=== PATIENT | female | born 1960 | race African-American/Black ===

== ENCOUNTER 2025-01-04 18:05 | Emergency (ER) | payer MEDICARE, MEDICAID, SELFPAY ==
[2025-01-04 18:12] VITALS: BP 101/64; PULSE 82; RESP 20; TEMP 37; O2SAT 97; BMI 21.3
--- NOTE | 2025-01-04 18:26 | ED_ITS ---
HPI - General Adult General Chief complaint: Wound/Laceration Stated complaint: Cut on L index finger Time Seen by Provider: 01/04/25 18:26 Source: patient and EMS Mode of arrival: EMS Limitations: no limitations History of Present Illness ED Provider: Laine Ramírez PA-C HPI narrative: Patient is a 64 year old assigned female at with no reported medical history presenting to the emergency department today with a left index finger laceration. Patient states that she was opening a brand new disposable razor when she accidentally cut her finger. Patient denies any dizziness, light headedness, abdominal pain, nausea, vomiting, fever, chills, blurry vision, double vision, loss of vision, chest pain, difficulty breathing, shortness of breath, back pain, night sweats, pain with urination, increased urinary frequency, increased urinary urgency, blood in her urine or stool, syncope or a near syncopal episode, recent trauma or falls, bowel incontinence, bladder incontinence, or any other complaints at this time. Patient states that she is up to date on her tetanus status. Relieving factors: none Exacerbating factors: none Associated symptoms: denies other symptoms Treatments prior to arrival: none Related Data Allergies Allergy/AdvReac Type Severity Reaction Status Date / Time acetaminophen (From VICODIN) Allergy Unknown NAUSEA & Verified 01/04/25 18:14 VOMITING codeine (CODEINE) Allergy Unknown UNKNOWN Verified 01/04/25 18:14 hydrocodone (From VICODIN) Allergy Unknown NAUSEA & Verified 01/04/25 18:14 VOMITING Sulfa (Sulfonamide Allergy Unknown UNKNOWN Verified 01/04/25 18:14 Antibiotics) (SULFA (SULFONAMIDE ANTIBIOTICS)) tramadol (TRAMADOL) Allergy Unknown UNKNOWN Verified 01/04/25 18:14 Review of Systems Constitutional: Constitutional: Reports no additional constitutional complaints, Denies chills, Denies fever(s) and Denies night sweats Eyes: Eyes: Reports no additional eye complaints, Denies blurry vision, Denies change in vision, Denies diplopia, Denies eye discharge, Denies loss of vision and Denies eye pain ENT: Denies dizziness Cardiovascular: Cardiovascular: Reports no additional cardiovascular complaints, Denies chest pain, Denies lightheadedness, Denies Loss of Consciousness and Denies dyspnea Respiratory: Respiratory: Reports no additional respiratory complaints and Denies dyspnea Gastrointestinal: Gastrointestinal: Reports no additional gastrointestinal complaints, Denies abdominal pain, Denies melena, Denies hematochezia, Denies change in bowel habits and Denies change in stool character Genitourinary: Genitourinary: Denies hematuria, Denies urinary frequency, Denies dysuria, Denies urinary incontinence, Denies urinary hesitancy and Denies urinary urgency Musculoskeletal: Musculoskeletal: Reports no additional musculoskeletal complaints, Denies numbness and Denies tingling Integumentary/Breasts: Comments: left index finger laceration Neurologic: Denies dizziness, Denies loss of vision, Denies numbness and Denies tingling Psychiatric: Psychiatric: Reports no additional psychiatric complaints Endocrine: Endocrine: Reports no additional endocrine complaints Hematologic/Lymphatic: Hematologic/Lymphatic: Reports no additional hematologic/lymphatic complaints Allergic/Immunologic: Allergic/Immunologic: Reports no additional allergic/immunologic complaints PMFSH Past Medical History Attestation statement: The following information was validated with the patient. Source: old records reviewed and nursing notes reviewed Social History Social History Advance Directives: No Advance Directives Information Provided: No Physical Exam ED Vital Signs: Vital Signs - 24 hr 01/04/25 18:12 01/04/25 19:07 Temperature 98.6 F 98.6 F Pulse Rate 82 82 Respiratory Rate 20 20 Blood Pressure 101/64 101/64 Pulse Oximetry 97 97 Oxygen Delivery Method Room Air Room Air BMI result Body Mass Index 21.3 Const General: cooperative, no acute distress, alert and awake Nutritional Appearance: well nourished Orientation/consciousness: patient oriented x3 HENSC Head: Yes normal to inspection and Yes atraumatic Ears: hearing grossly normal bilaterally and external ears normal General nose exam: Normal external nose present, no nasal discharge noted and no epistaxis Face and sinus: Yes normal facial exam, No abrasion and No laceration Mouth: Normal oral and palatal mucosa present, no drooling and no muffled voice Eyes General: appearance normal, both eyes and all related structures Periorbital: periorbital findings normal Eyelids: Yes eyelids normal Conjunctivae: conjunctivae normal Pupils: Equal, round and reactive pupils present EOM: EOMs intact bilaterally Neck Neck: Yes normal visual inspection, Yes full ROM and Yes no lymphadenopathy Resp Effort & Inspection: normal respiratory effort and able to speak in complete sentences Neuro General: patient oriented x3, moves all extremities and CN's II-XI intact bilaterally Cranial nerves: Yes Equal, round and reactive pupils present Cognition (Neuro): normal cognition Extrem Other: superficial laceration to the palmar aspect of the distal left index finger General: Yes full ROM and Yes capillary refill normal Psych Appearance: grossly normal Mental Status: mental status grossly normal Affect: normal affect Attitude: cooperative Thought process: Normal thought process present Thought content: Normal thought content present Insight: Good insight present (Psych) Medications Administered Discontinued Medications Generic Name Dose Route Start Last Admin Trade Name Phillip PRN Reason Stop Dose Admin Ketorolac Tromethamine 15 mg 01/04/25 18:56 01/04/25 19:01 Ketorolac Tromethamine 15 Mg/Ml Vial IM 01/04/25 18:57 15 mg ONCE ONE Administration Procedures Laceration Laceration 1: Site: other (finger) Side (If applicable): left Size (cm): 1 Description: linear Pre-repair: wound explored, irrigated extensively and deep structures intact Skin layer closed with: other (dermabond) Size (cm): other (dermabond) Technique: other (dermabond) Medical Decision Making Medical Decision Making MDM Narrative: Patient is a 64 year old assigned female at with no reported medical history presenting to the emergency department today with a left index finger laceration. Patient's physical exam showed a very superficial laceration to the left index finger with no active bleeding or gaping areas. I explained my physical exam findings to the patient. I answered all questions asked by the patient. Patient's laceration was repaired with dermabond, without incident. Patient's PMS was intact prior to and after dermabond repair. I stressed the importance of the patient taking her medication as directed (either prescribed or as the over the counter packaging recommends). I stressed the importance of the patient following up with her primary care provider. I stressed the importance of the patient returning to the emergency department immediately if her symptoms were to worsen or if she were to develop any dizziness, shortness of breath, difficulty breathing, chest pain, blurry vision, loss of vision, nausea, vomiting, abdominal pain, fever, chills, back pain, or any other complaints. Patient verbalized agreement and understanding with this treatment plan and discharge. Differential Diagnosis Differential Diagnoses: The differential diagnosis associated with the presentation includes Laceration Abrasion Admission/Observation Consideration of admission/observation: Escalation of care including admission/observation considered Patient would have been admitted to the hospital had her clinical presentation warranted hospital admission. Independent Historian Clinical information obtained from an independent historian. History obtained from or confirmed by: EMS (EMS provided additional history and confirmed the history provided by the patient. ) Discharge Plan Discharge Clinical Impression: Laceration Patient Disposition: Home, Self-Care Instructions: Skin Adhesive Care (ED) Additional Instructions: Do NOT get the affected area wet for at least 7 days. The glue will dissolve and fall off on it's own. The wound may ooze around the glue - this is NORMAL. Apply pressure to the wound if that happens. Perform daily wound checks and dressing changes. Follow up with your primary care provider. Return to the emergency department immediately if you develop any numbness, tingling, dizziness, shortness of breath, difficulty breathing, chest pain, blurry vision, loss of vision, nausea, vomiting, abdominal pain, fever, chills, back pain, or any other complaints. Please see the information below about our Patient Portal. If you are not yet enrolled in the [facility] Patient Portal, you will receive an enrollment email invitation following your visit to any [facility] setting. You may also self-enroll in the Patient Portal by visiting our website: [email or web address] The following information is required to access the Patient Portal: - Your [facility] [place] - Your personal home email address (must match what is in your electronic medical record, Registration staff can assist with this) - Name - Date of Capabilities of the Patient Portal: - Message some providers - View upcoming appointments - Access your health summary, medical history, and visit history - View current conditions and allergies - View procedure and lab results - View your medications, including guidelines, side effects, and precautions - Complete pre-appointment questionnaires requested by your provider - Ready summary reports of your office visits and procedures To access the Patient Portal Mobile [employer], follow these directions: - Search Smart [employer] in the [employer] Store or Google Play Store - Download the Johnson - Search for [facility] - Enter your login/password Referrals: Annita Melgoza MD [Primary Care Provider, Internal Medicine] Interventions: ED Discharge Assessment Last Done: 01/04/25 19:07 Discharge Date/Time: 01/04/25 19:07 Print Language: Bahraini
--- OUTSIDE RECORDS SUMMARY | 2025-01-04 18:33 | XMS_ITS | Data Portability ---
[facility] Address [address] [facility] [address] [place] [address] Care Team Providers Care Staff Services Manager Name Role Phone [facility] Primary Care Provider [facility] OTHER Assessment No assessment recorded. Plan of Treatment Reminders Order Date Submit Date Provider Last Modified By Organization Details Last Modified Time Details Appointments None record ed. Lab None record ed. Referral None record ed. Procedures None record ed. Surgeries None record ed. Imaging None record ed. Medication Orders None record ed. Patient TargetsNo targets recorded. Patient InstructionsNo instructions recorded. Reason for Referral None Reported. Problems Name Problem SNOMED Code Status Onset Date Resolution Date Notes Provider Name and Address Organization Details Recorded Time Pain of sacroiliac joint 378841801 Active 2021 Not Available [facility] 2 01:04:07 Chronic neck pain 9616675341534 Active 2021 Not Available [facility] 2 01:04:07 Chronic back pain 888355922 Active 2021 Not Available [facility] 2 01:04:08 Chronic hepatitis C 553796360 Active 2021 Not Available [facility] 2 01:04:07 Opioid dependence 67982632 Active 2021 Not Available [facility] 2 01:04:07 Migraine 88695161 Active 2021 Not Available [facility] 2 01:04:07 Overactive urinary bladder 123807156 Active 2021 Not Available [facility] 2 01:04:07 Mixed anxiety and depressive disorder 294753007 Active 06/02/ 2022 Not Available [facility] 2 01:04:07 Essential hypertensi on 43989758 Active 2021 Not Available [facility] 2 01:04:07 Nocturnal enuresis 9431698 Active 2021 Raquel Laboy MD [address], [address], [place], [address] , [facility] 2 23:00:39 Notes:Some problems listed i n Document: #[id number] could not be added to this patient's chart. Please review this document and add these problems to the patient's chart manually as needed. Problem Notes None recorded. Medical Equipment None Reported. Allergies Allergen ID Allergen Name Allergen Category Reaction Reaction Severity Criticality Documentation Date Start Date Code Code System Note Provider Name and Address Organization Details Recorded Time 14427 codeine medicatio n vomiting Not available Not available 12/09/2021 2670 RxNorm CAN TAKE OXYCO DONE AND BUPRE NORSUSAN INE MELODIE REILLY PA-C [address], [address], [place], [address], [facility] 2 13:33:16 41075 hydrocodo ne Not available vomiting Not available Not available 12/09/2021 5489 RxNorm CAN TAKE OXYCO DONE AND BUPRE REDD REILLY PA-C [address], [address], [place], [address], [facility] 2 13:33:35 47606 Bactrim medicatio n vomiting Not available Not available 12/09/2021 36073 9 RxNorm MELODIE REILLY PA-C [address], [address], [place], [address], [facility] 2 13:34:35 61872 Product containin g penicilli n (product) medicatio n diarrhea Not available Not available 12/09/2021 70442 8001 SNOMED MELODIE REILLY PA-C [address], [address], [place], [address], [facility] 2 13:34:43 Medications Not known to be on any medication Vitals Date Recorded Body height Systolic blood pressure Diastolic blood pressure Provider Name and Address Organization Details Last Updated DateTime 05/09/2022 170.18 cm 160 mm[Hg] 82 mm[Hg] MELODIE REILLY PA-C [address], [place], [address], [facility] 05/22/2022 10:38:45 Date Recorded Body height Body mass index (BMI) Body weight Heart rate Respiratory rate Body temperature Oxygen saturation Oxygen saturation in Arterial blood by Pulse oximetry Systolic blood pressure Diastolic blood pressure Provider Name and Address Organization Details Last Updated DateTime 2 170.18 cm 33.3 kg/m2 51327.7 4 g 80 /min 18 /min 97.8 [degF] 93 % 93 % 136 mm[Hg] 76 mm[Hg] Raquel Laboy MD [address] , [address], [place], [address], [facility] 2 20:16:38 Date Recorded Body height Systolic blood pressure Diastolic blood pressure Provider Name and Address Organization Details Last Updated DateTime 05/24/2022 170.18 cm 136 mm[Hg] 76 mm[Hg] MELODIE REILLY PA-C [address], [address], [place], [address], [facility] 06/04/2022 17:41:44 Date Recorded Body height Systolic blood pressure Diastolic blood pressure Provider Name and Address Organization Details Last Updated DateTime 06/05/2022 170.18 cm 130 mm[Hg] 74 mm[Hg] Joe Holley MD [address] , [address], [place], [address], [facility] 06/05/2022 09:19:33 Date Recorded Body height Oxygen saturation Oxygen saturation in Arterial blood by Pulse oximetry Heart rate Respiratory rate Body temperature Systolic blood pressure Diastolic blood pressure Provider Name and Address Organization Details Last Updated DateTime 2 170.18 cm 93 % 93 % 80 /min 18 /min 97.6 [degF] 130 mm[Hg] 74 mm[Hg] CHALO Cordova [address], [address], [place], [address], [facility] 2 09:10:32 Social History Question Answer Notes LastModified by Organizat ion Details LastModified Time Tobacco Smoking Status Never Smoker MELODIE REILLY PA-C [address], [address], [place], [address], [facility] 12/13/2021 09:24:00 Do You Have An Advance Directive? Yes Full Code; All Interventions [email or web address] Information not available 12/09/2021 What Is Your Code Status? Full Code [email or web address] Information not available 12/13/2021 Which Illicit Or Recreational Drugs Have You Used? Heroin [email or web address] Information not available 12/13/2021 Legal Guardian? No [email or web address] Informati on not available 12/13/2021 Do You Have A Medical Power Of Bulb Weeder? No [email or web address] Information not available 12/13/2021 What Was The Date Of Your Most Recent Tobacco Screening? [email or web address] Information not available 12/13/2021 Do You Have An Out Of Hospital DNR? No [email or web address] Information not available 12/13/2021 Has Tobacco Cessation Counseling Been Provided? No N/A [email or web address] Information not available 12/13/2021 Have You Used IV Drugs? Yes [email or web address] Information not available 12/13/2021 Sex: Unknown Functional Status Question Answer Note LastModified by Organizat ion Details LastModified Time Do you use any illicit or recreational drugs? Yes Hx heroin - last 30 years ago [email or web address] Information not available 12/09/2021 Mental Status None recorded. Family History Relationship Description Onset Age of this Age Resolved Age Notes LastModified by Organization Details LastModified Time Mother Hypertensive disorder [email or web address] Not available 2021 14:32:46 Mother Cerebrovascu lar accident [email or web address] Not available 14:32:58 Father Liver cell carcinoma [email or web address] Not available 2021 14:33:15 Medical History No medical history recorded. Gynecological HistoryNo gynecological history recorded. Obstetrics History GPAL:G 0 P 0 0 0 0 Immunizations Vaccine Type Date Status Note Provider Nam e and Address Organization Details Recorded Time COVID-19, mRNA, LNP-S, PF, 30 mcg/0.3 mL dose 1 completed Not Available [facility] 03/03/2022 01:04:08 COVID-19, mRNA, LNP-S, PF, 30 mcg/0.3 mL dose 1 completed Not Available [facility] 03/03/2022 01:04:08 COVID-19, mRNA, LNP-S, PF, 30 mcg/0.3 mL dose 1 completed Not Available [facility] 03/03/2022 01:04:08 Influenza, split virus, quadrivalent, preservative 1 completed Not Available [facility] 03/03/2022 01:04:08 COVID-19, mRNA, LNP-S, PF, 30 mcg/0.3 mL dose 2 completed Not Available [facility] 03/03/2022 01:04:08 Influenza, split virus, quadrivalent, preservative 2 completed MELODIE REILLY PA-C [address], [facility] [address], [place], [address], [facility] 05/13/2022 16:08:19 COVID-19, mRNA, LNP-S, bivalent, PF, 30 mcg/0.3 mL dose 2 completed MELODIE REILLY PA-C [address], [address], [place], [address], [facility] 05/22/2022 10:40:52 Past Encounters Encounter ID Performer Location Encounter Start Date Encounter Closed Date Diagnosis/Indication Diagnosis SNOMED-CT Code Diagnosis ICD10 Code Diagnosis Note [id number] MELODIE REILLY PA-C [facility] on [address] [place] [address] 12/09/2021 13:30:48 12/14/2021 09:55:22 Chronic back pain 631945071 M54.31 PT/OTMulti modal pharmacoth erapyExten sive pt education about the history of buprenorph ine and how it does contribute to pain management -agreed to take the Suboxone as prescribed over the weekend and see if her pain is any better.No changes to oxycodone unless decreasing No extra oxycodone dosesMonit or and f/u prn Chronic hepatitis C 1283 88860 B18.2 Previously declined txOutpatie nt f/u with PCP after d/c Chronic neck pain 573566 4450 107 M54.2 see back pain above Migraine 22423065 G43.90 9 Ok to continue prn triptan despite increased risk of serotonin syndrome with Effexor - will monitor Opioid dependence 163682 00 F11.20 on agonist therapy with Suboxone. Discussed the possibilit y of Sublocade since she mostly forgets to take the Suboxone.- unable to prescribe here since [facility] is not registered with [facility]-she will explore this with her Suboxone prescriber at [facility] Overactive urinary bladder 924056693 N32.81 Oxybutynin Pain of sa croiliac joint 170580712 M53.3 see back pain above Advance care planning 71 6179822 Z71.89 Met with pt, who is her own decision-jolanta hernández, in her room. Reviewed each section of the MOLST that she had completed with the nurse Answered questions to her satisfacti on. She did not wish to revise her selections . Form signed and orders entered to reflect the following: Full code; all interventi ons. Total time spent 20 minutes [id number] Raquel Laboy MD [facility] on [address] [place] [address] 12/13/2021 17:23:48 12/16/2021 14:51:59 Chronic back pain 920736641 M54.31 No changes in meds tonight, I told pt I would leave a note for Melodie for the morning. She is upset because she was under the impression it was up to me.For now continue suboxone 8/2 TID, gabapentin 800 mg TID, tizanidine 4 mg qhs prn, ibuprofen 800 mg q 6 hrs prn, oxy 5 mg q 6 hrs prn, lidocaine patch daily, APAP 650 mg q 6 hrs prn and prednisone taper.Cons ider scheduling ibuprofen 600 mg q 6 hrs. when off prednisone .Continue PT/MATILDE/U with neurosurg about stimulator as planned. Chronic hepatitis C 1283 92157 B18.2 Previously declined txOutpatie nt f/u with PCP after d/c Chronic neck pain 920512 3827 107 M54.2 see back pain above Migraine 08455684 G43.00 9 Continue Imitrex prnMonitor Opioid dependence 171605 00 F11.20 Pt denies forgetting to take suboxone. Says she stopped it due to ineffectiv e for pain.Has been clean from heroin for 30 yrs.F/U as outpt. Overactive urinary bladder 397924965 N32.81 Continue oxybutynin 5 mg qd.Monitor urinary function. Essential hypertension 76364571 I10 Good control amlodipine 5 mg qdMonitor BP and labs. Mixed anxi ety and depressive disorder 028005142 F41.8 Continue Trazodone 200 mg qhs and Effexor ER 225 mg qamMonitor mood.Consu lt psych prn [id number] MELODIE REILLY PA-C [facility] on [address] [place] [phone] 12/14/2021 13:47:41 12/20/2021 09:58:19 Chronic low back pain 774454892 M54.50 with acute flare add oxycodone IR 5 mg po 30 min before rehab-ok to given anytime relative to other doses-scri pt for oxycodone IR 5 mg #30 no refills given to nurse Increase gabapentin from 800 mg po tid to max dose of 1200 mg po tid-monito r for edema Chronic constipation 236 191069 K59.09 Senna 2 po bid x 2 days then 2 po qhsHas clio bowel protocol availableM onitor and f/u prn [id number] MELODIE REILLY PA-C [facility] [address] [place] [address] 12/20/2021 16:30:01 12/27/2021 20:44:07 Low back pain 249698787 M54.59 No indication to adjust meds Chronic constipation 236 880690 K59.09 [facility] bowel protocol availableM onitor and f/u prn [id number] MELODIE REILLY PA-C [facility] [address] [place] [phone] 12/21/2021 21:23:02 12/28/2021 14:03:38 Chronic back pain 666079523 M54.31 PT/OTMulti modal pharmacoth erapyNurse has corrected order to restart Prednisone taperMonit or and f/u prn [id number] MELODIE REILLY PA-C [facility] on [address] [place] [phone] 01/03/2022 12:48:53 01/05/2022 15:02:27 Urinary incontinence 120786129 R32 Abruptly significan tly worseU/A with reflex to culture r/o UTI-if negative, would increase Oxybutynin from 5 to 10 mg po daily [id number] MELODIE REILLY PA-C [facility] on [address] [place] [phone] 01/04/2022 15:19:24 01/11/2022 15:25:51 Urinary incontinence R32 U/A neg so farIncreas e oxybutynin ER from 5 mg to 10 mg po daily [id number] MELODIE REILLY PA-C [facility] on [address] [place] [phone] 01/17/2022 16:56:50 01/24/2022 10:08:44 Overactive urinary bladder 273366851 N32.81 Discussed with pt she is still only at 50% of max dose of oxybutynin -can either further increase or trial alternativ e med-she would like to try something differentd /c oxybutynin start Enablex 7.5 mg po dailyMonit or and f/u prn [id number] MELODIE REILLY PA-C [facility] on [address] [place] [phone] 01/18/2022 11:21:59 01/24/2022 10:53:49 Weight gain 5611630 R63.5 Not significan tNot on any nutritiona l supplement sMonitor weightsRD also following Chronic back pain 948056 002 M54.31 PT/OTMulti modal pharmacoth erapyConsi genoveva f/u with Dr. Pichardo at [facility] er repeat imagingMon itor and f/u prn Overactive urinary bladder 373696048 N32.81 Just switched from oxybutynin to EnablexMon itor and f/u prnMay need to increase EnablexInc ontinence not as concerning as retention would be with regard to underlying process with spine Essential hypertension 52013668 I10 BPs stable. Monitor and adjust meds prn [id number] MELODIE REILLY PA-C [facility] on [address] [place] [phone] 01/20/2022 16:33:52 02/02/2022 09:06:59 Chronic back pain 218892359 M54.31 Restart Prednisone -- much slower taper-50 mg po daily x 14 days then decrease by 5 mg q 14 days-pt pleased with this planSee if can get f/u with Dr. Pichardo at [facility]/OT[facility] o other med changes needed at this timeMonito r and f/u prn [id number] MELODIE REILLY PA-C [facility] on [address] [place] [phone] 01/23/2022 16:22:37 02/02/2022 09:40:11 Chronic back pain 559936969 M54.31 seems to be responding well to Prednisone -refer to [facility] for possible steroid injectionC ontinue PT/OTFollo w clinically Urinary incontinence 165 972537 R32 Recent U/A negIncreas e Enablex from 7.5 to 15 mg po dailyFollo w clinically [id number] MELODIE REILLY PA-C [facility] on [address] [place] [id number] 01/26/2022 16:42:48 02/07/2022 11:04:45 Polyuria 53157389 R35.81 Prior neg UTINot particular ly diluteNorm al glucose and normal Na on labsConsid er trial off Zanaflex, which she takes at hsRemains on Prednisone and Enablex Excessive thirst 2171542 7 R63.1 Normal glucose on labsIs on Prednisone and EnablexNo [id number] Raquel Laboy MD [facility] on [address] [place] [phone] 02/13/2022 17:20:55 02/24/2022 15:42:30 Polyuria 32693316 R35.81 Continue Enablex 15 mg qd.Monitor urinary function. Excessive thirst 9395829 7 R63.1 Likely due to prednisone .Monitor. Chronic back pain 439461 002 M54.31 Will give one time dose of oxy 10 mg before appt on sunday for van ride.Doing well with increased prednisone . Continue slow taper, lowering 5 mg q 2 weeks.Cont inue suboxone 8/2 TID, gabapentin 1200 mg TID, tizanidine 4 mg qhs prn, oxy 5 mg q 6 hrs prn with one dose 30 before PT, and APAP 650 mg q 6 hrs prn.Ibupro fen on hold while on prednisone .F/U with neurosurg on 02/15 and [facility] on 03/08 at 1 PM. Overactive urinary bladder 690921515 N32.81 As above. Essential hypertension 12305796 I10 Remains in adequate control on amlodipine 5 mg qdMonitor BP and labs. Chronic hepatitis C 1283 63247 B18.2 Previously declined txOutpatie nt f/u with PCP after d/c Chronic neck pain 558897 9858 107 M54.2 see back pain above Migraine 49600973 G43.00 9 No recent HAs.Contin ue Imitrex 25 mg prn, MR in 2 hrs if needed.Mon itor frequency of HAs and effectiven ess of imitrex. Opioid dependence 912088 00 F11.20 Has been clean from heroin for 30 yrs.Contin ue GLORIA counseling prn. Mixed anxi ety and depressive disorder 261191184 F41.8 Continue Trazodone 200 mg qhs and Effexor ER 225 mg qamMonitor mood.Consu lt psych prn [id number] MELODIE REILLY PA-C [facility] on [address] [place] [id number] 02/23/2022 10:03:40 03/07/2022 15:48:14 Chronic low back pain 370105167 M54.50 Await explantati on of spinal stimulator Has PSSP consult pendPT/OTN o changes to meds at this timeFollow clincally [id number] MELODIE REILLY PA-C [facility] on [address] [place] [phone] 02/24/2022 16:05:38 02/27/2022 16:06:06 Chronic low back pain 589297249 M54.50 pain worse-uncl ear if she just doesn't tolerate decreasing Prednisone -don't want her on chronic Prednisone -has upcoming consult with physiatris t at [facility] she is eligible for steroid injection since she seems to be steroid-re sponsive-h as upcoming explanatio n of spinal stimulator with Dr. Pichardo ([facility])On max gabapentin -no edemahas prn oxycodone as well as pre-rehab oxycodoneS till having urinary incontinen ce, which seems to worsen as steroid decreases- no symptoms of UTI-contin ue Enablex [id number] MELODIE REILLY PA-C [facility] on [address] [place] [phone] 3 02/28/2022 16:46:00 03/15/2022 10:30:21 Lumbago with sciatica 884495020 M54.42 d/c SuboxoneCh silke oxycodone from 5 mg po q 6 h prn mod-severe pain to:-oxycod one IR 5 mg po tid scheduled- oxycodone IR 5 mg prior to rehab-ok to give anytime relative to scheduled dose-oxyco done IR 5-10 mg po q 4 h prn mod-severe pain-not to be given within 2 hours of scheduled doseScript for oxycodone IR 5 mg #90 no refills given to nursed/c order for no adjustment s to oxycodoneH as PSSP consult pendContin ue PT/OTFollo w clinically HNE granted 2-week extension with plan to review again-info requested by reviewing physician conveyed to treatment team-if not making any significan t gains, will be deemed to not meet criteria for ongoing stay Total time spent 50 minutes, >50% in face-to-fa ce counseling and coordinati on of care [id number] MELODIE REILLY PA-C [facility] on [address] [place] [phone] 03/08/2022 16:08:47 03/22/2022 12:12:03 Edema of lower extremity 106471380 R60.0 multifacto rial-frequ ent dependent positionin g in w/c-potent ial effects of Norvasc +/- gabapentin +/- prednisone -start with Prednisone taper since ideally should not be on manager terminal and pain meds have since been overhauled -next culprit would be gabaNo evidence of cardiopulm onary involvemen t although weight overall up since admitNo suspicion for DVTFollow clinically [place] 904443174 R29.6 PT/OT prn Chronic pain syndrome 37 2934054 G89.4 Taper prednisone as aboveNo indication to change other meds at this timeAwait removal of neurostimu lator-f/u with [facility] after removal [id number] MELODIE REILLY PA-C [facility] on [address] [place] [phone] 03/09/2022 16:22:45 03/15/2022 12:00:40 Increased frequency of urination 494384067 R35.0 check U//A for completene ss-f/u when results are available. [id number] MELODIE REILLY PA-C [facility] on [address] [place] [phone] 03/13/2022 15:46:18 03/27/2022 15:22:42 Edema of lower extremity 766077738 R60.0 improved on reduced prednisone -continue tapercondenis fisher Norvasc [id number] MELODIE REILLY PA-C [facility] on [address] [place] [phone] 3 03/23/2022 20:09:58 04/14/2022 15:25:36 Edema of lower extremity 730796899 R60.0 improved on reduced prednisone -continue taperconti flory fisher Norvasc Chronic pain syndrome 37 4310914 G89.4 Prednisone taperAwait removal of spinal cord simulatorC onsult Dr. Simmons [id number] MELODIE REILLY PA-C [facility] on [address] [place] [phone] 3 03/27/2022 11:38:23 04/14/2022 15:41:03 Weight gain 5575931 R63.5 No evidence of volume overload on examHas been on chronic steroidsCo nsider updating TSH Chronic back pain 186696 002 M54.31 Has upcoming spinal simulator explantPhy siatry consult with Dr. Kenyetta SimmonsCon tinue Prednisone taper-educ ated pt about increased risks of avascular necrosis, Cushingoid syndrome, diabetesNo changes to very generous oxycodone regimenFol low clinically PT/OT prn Urge incon tinence of urine 56059832 N39.41 No dysuriaU/A not performed- pt does not feel like UTI is issue-will not re-orderCo ntinue EnablexMay be related to back pathologyf /u prn Edema of l ower extremity 523306391 R60.0 Improved on reduced Prednisone Remains on gabapentin and NorvascMon itor and f/u prn [id number] CHALO Cordova [facility] on [address] [place] [phone] 3 04/18/2022 14:49:37 04/25/2022 13:03:38 Chronic back pain 630063294 M54.31 s/p dorsal column stimulator removal on ontin ue current oxycodone orders - 5 mg tid and 1-2 tabs q 4 hrs prn mod - severe painPT OT for conditioni ng and mobilitymo nitor mid back sitef/u with DR Pichardo Essential hypertension 16161883 I10 BP elevated today 198/109on norvasc 5 mg qdnurse just rechecked BP which is improved at 146/62, likely higher bp 2/2 painmonito r bp [id number] MELODIE REILLY PA-C [facility] on [address] [place] [phone] 3 04/19/2022 16:35:59 05/01/2022 15:56:03 Post-laminectomy syndrome 04834571 M96.1 d/c all oxycodoneO xycodone IR 20 mg po tidOxycodo ne IR 10 mg po q 4 h prn mod-severe pain-not to be given within 1 hour of scheduled doseScript for oxycodone IR 10 mg #90 no refills given to nurseWill need to look at taper after an appropriat e amount of post-op time has passedPT/O TMonitor for infectionO rtho f/u with Dr. Pichardo Urinary incontinence 165 547223 R32 On EnablexNew ly post-op - will address in a few days if still occurring [id number] MELODIE REILLY PA-C [facility] on [address] [place] [phone] 3 04/25/2022 16:59:41 05/03/2022 13:23:40 Mixed urinary incontinence 919516800 N39.46 Continue Enablex 15 mg po dailyAdd imipramine 25 mg po qhs-titrat e as neededCons ider vaginal estrogen in the event that postmenopa usal atrophy is playing a roleFollow clinically [id number] MELODIE REILLY PA-C [facility] on [address] [place] [address] [phone] 3 04/26/2022 20:45:00 05/03/2022 13:43:01 Lumbar post-laminectomy syndrome 979021155 M96.1 no evidence of dehiscence or infection of surgical incisionso rtho post-op f/ufollow clinically [id number] MELODIE REILLY PA-C [facility] on [address] [place] [address] [phone] 3 05/03/2022 20:46:14 05/16/2022 14:57:41 Acute constipation 719948794 K59.00 MiraLax 17 g po q 1 h until BMfollow clinically [id number] MELODIE REILLY PA-C [facility] on [address] [place] [address] [id number] 3 05/09/2022 11:47:22 05/23/2022 15:34:01 Nocturnal enuresis 3607416 N39.44 resolved with addition of low-dose TCAMonitor and f/u prn Chronic constipation 236 828727 K59.09 Acute constipati on resolvedNo t having overflow diarrheaCo nsider MiraLax 17 g po dailyConti nue other scheduled and prn bowel medsMonito r and f/u prn [id number] Raquel Laboy MD [facility] on [address] [place] [address] 05/23/2022 20:12:23 05/30/2022 09:55:17 Nocturnal enuresis [id number] N39.44 No further sxs.Contin ue imipramine 25 mg qhs.Monito r urinary function. Chronic constipation 236 081313 K59.09 Under control on current regimen.Co ntinue bowel meds as ordered.Andres hartmann bowel function Weight gain 2196983 R63. 5 Gained almost 40# between Feb to Mar. But now has begun to lose a little.Louise uld continue to improve now that off prednisone .Continue to encourage healthy eating. tician consult.Andres hartmann wts. Chronic back pain 617452 002 M54.31 S/P spinal simulator explantCon tinue gabapentin 1200 mg TID, oxycodone 20 mg TID and 10 mg q 4 hrs prn, and APAP 650 mg q 6 hrs prn.Being followed by Dr. Simmons here, but also needs appt with [facility] reschedule d. Urge incon tinence of urine 12948414 N39.41 Continue Enablex 15 mg qd.Monitor urinary function. Overactive urinary bladder [id number] N32.81 As above. Essential hypertension 18061444 I10 Remains in adequate control on amlodipine 5 mg qdMonitor BP and labs. Chronic hepatitis C 1283 89816 B18.2 Previously declined txOutpatie nt f/u with PCP after d/c Chronic neck pain 010280 3749 107 M54.2 see back pain above Migraine 98046477 G43.00 9 No recent HAs.Contin ue Imitrex 25 mg prn, MR in 2 hrs if needed.Mon itor frequency of HAs and effectiven ess of imitrex. Opioid dependence 867606 00 F11.20 Has been clean from heroin for 30 yrs.Contin ue [facility] counseling prn. Mixed anxi ety and depressive disorder 579691560 F41.8 Continue Trazodone 200 mg qhs and Effexor ER 225 mg qamMonitor mood.Consu lt psych prn [id number] MELODIE REILLY PA-C [facility] on [address] [place] [address] 05/24/2022 10:58:28 06/05/2022 14:59:50 Chronic back pain 040768320 M54.31 Continue oxycodone IR 20 mg po tid scheduledB ased on review of prn use, will adjust from 10 mg q 4 to q 6 prn mod-severe back pain, not to be given within 1 hour of scheduled dose-pt agreeable and understand s that oxycodone will need ongoing taperFollo w-up prn [id number] Joe Holley MD [facility] on [address] [place] [address] 06/05/2022 09:04:11 06/13/2022 09:43:57 Chronic back pain 084298891 M54.31 see HPIwill d/c oxycodone 20 mg tid and startoxyco ntin 20 mg bidcontinu e oxycodone 10 mg qid prn breakthrou gh painmonito r for effectfoll ow ortho recs and update with concerns [id number] CHALO Cordova [facility] on [address] [place] [address] 06/06/2022 08:26:32 06/13/2022 10:16:27 Idiopathic peripheral neuropathy 75801484 G60.9 pt ok to dc home tomorrowwa s on a supplement for her pedal neuropathy is willing to try lyricastar t lyrica 25 mg bid - rx for # 60 orderedf/u pcp Chronic back pain 337732 002 M54.31 S/P spinal simulator explantCon tinue gabapentin 1200 mg TID, oxycodone 20 mg TID and 10 mg q 6 hrs prnpt will go home with # 60 half tabs of 20 mgf/u [facility] as out pt Nocturnal enuresis 54360 08 N39.44 No further sxsContinu e imipramine 25 mg qhs.f/u pcp Chronic constipation 236 572842 K59.09 Under control on current regimen.mi ralax 17 grams qdsenna prnf/u pcp Weight gain 9447319 R63. 5 Gained almost 40# between Feb to Mar. But now has begun to lose a little.Louise uld continue to improve now that off prednisone .was at a high of 220# now at 212#f/u pcp Urge incon tinence of urine 17174412 N39.41 Continue Enablex 15 mg qdf/u pcp Essential hypertension 62944260 I10 bp normalamlo dipine 5 mg qdf/u pcp Chronic hepatitis C 1283 70290 B18.2 Previously declined txf/u pcp Migraine 23229789 G43.00 9 No recent HAsContinu e Imitrex 25 mg prn, MR in 2 hrs if needed.f/u pcp Opioid dependence 064688 00 F11.20 Has been clean from heroin for 30 yrsContinu e [facility] counseling prn. Mixed anxi ety and depressive disorder 431741145 F41.8 Continue Trazodone 200 mg qhs and Effexor ER 225 mg qammood stablef/u pcp Health Concerns Section Related Observation LastModified by Organization Detai ls LastModified Time None Recorded Concern Status LastModified by Organization Details LastModified Time None Recorded Advance Directives Directive Y: Full code; all interventi ons Payers Insurance Date Sequence Insurance Name Policy Number Policy Bailey Covered Member ID Bailey Member ID Guarantor Name 06/13/2022 1 [facility] (MEDICAID REPLACEMENT - HMO) [id number] Beatriz Patel [id number] Beatriz Patel 06/13/2022 1 [place] [facility] Beatriz Patel [id number] Beatriz Patel Notes Date Note Type Note Provider Name and Address Organization Details Recorded Time 05/09/2022 text/html Pt seen for acut e rounding visit today for constipation and urinary incontinence. Still having difficulty moving bowels. No abd pain. No N/V/D. Baseline appetite. Resolution of urinary incontinence with addition of low-dose imipramine. Now having R-sided sciatica rather than L-sided. Overall significantly better since spinal stimulator explanted. PMHx reviewed Meds reviewed MELODIE REILLY PA-C [address] [place] [address], [address], [place], [address], [facility] Hers 05/22/2022 20:21:51 05/23/2022 text/html This is a 61 yo woman, LTC resident, who I am seeing today for a routine MD rounding visit. She was originally admitted on 12/08 after a hospitalization for uncontrolled back pain with failed nerve stimulator placement.She is now s/p Explantation of spinal cord stimulator, revision laminotomy on 04/[address] Pichardo. Incision is well healed. Recently she had some issues with constipation and nocturnal enuresis. Enuresis resolved with addition of imipramine. Cannot go home yet as unable to navigate current apt with walker, had home eval in December.Tonight she says pain is fairly well managed with current regimen. Working with PT to try and regain more strength and function. She is upset because facility caused her to miss appt. with [facility] today for epidural steroid injection. They mistakenly thought Dr. Simmons was going to do it, but she doesn't do spines. SO they never set up transportation.Her PMH includes HTN, chronic back pain-s/p multiple surgeries-see PA note for details. Hx of EtOH abuse, hx of OUD on suboxone, HepC, hx of nephrolithiasis 2007, OAB, depression, hx of incarceration, migraines, osteopenia, s/p L trimalleolar fx s/p ORIF 2017 and R tibial fx s/p ORIF 2017. Raquel Laboy MD [address], [address], [place], [address], [facility] 05/29/2022 23:25:27 05/24/2022 text/html Pt seen for acut e rounding visit today for chronic back pain. Pt requested to be seen for the above. Has multifactorial chronic back pain. See prior notes for details. Doing better since spinal stimulator explanted. Still on scheduled and prn oxycodone. Also being followed by aeronautical test engineer. PMHx reviewed Meds reviewed MELODIE REILLY PA-C [address], [address], [place], [address], [facility] 06/04/2022 17:46:56 06/05/2022 text/html Patient is a 61 yo female LTC resident seen for acute rounding with chronic low back pain. Patient followed by NE héctor with recent stimulator removal. Opioids were increased short term to be tapered. Currently on oxycodone 20 mg tid and 10 mg qid prn breakthrough. Of note patient states she is preparing for discharge this Sunday, nursing not aware - to contact social work professor and coordinate Joe Holley MD [address], [address], [place], [address], [facility] 06/05/2022 09:25:43 06/06/2022 text/html 61 yo woman, LTC resident, is discharging home tomorrow. pt has made good progress with rehab and is able to move back to her apartment. She was originally admitted on 12/08 after a hospitalization for uncontrolled back pain with failed nerve stimulator placement. She is now s/p Explantation of spinal cord stimulator, revision laminotomy on 04/[address] Pichardo. Incision is well healed. Recently she had some issues with constipation and nocturnal enuresis. Enuresis resolved with addition of imipramine.at this time pain is fairly well managed with current regimen. pt was seen by yesterday who ordered dc oxycodone and start oxycontin however her insurance will not cover oxycodone so she will be discharging home with her current pain med regime to follow up with her PCP as out pt. pt had been on an OTC neuropathy supplement but does not have any left. says she has tried gabapentin in the past but it did not help her neuropathy however she is on it for pain. Her PMH includes HTN, chronic back pain-s/p multiple surgeries, Hx of EtOH abuse, hx of OUD on suboxone, HepC, hx of nephrolithiasis 2007, OAB, depression, hx of incarceration, migraines, osteopenia, s/p L trimalleolar fx s/p ORIF 2018 and R tibial fx s/p ORIF 2017. Pastora Rose, LOADING UNIT OPERATOR [address], [address], [place], [address], [facility] - Hers 06/06/2022 09:30:15 OBGyn Episode No OBEpisode recorded.
[2025-01-04] MEDS: Ketorolac Tromethamine 15 MG/ML VIAL IM (19:01)
[2025-01-04 19:07] VITALS: BP 101/64; PULSE 82; RESP 20; TEMP 37; O2SAT 97
== END 2025-01-04 19:07 | disposition home or self-care (01) ==
PROVIDERS: Emergency Provider Emergency Medicine Emergency Medical Services; PCP Internal Medicine
DX: S61.211A Laceration without foreign body of left index finger without damage to nail, initial encounter (principal); M79.642 Pain in left hand; W26.9XXA Contact with unspecified sharp object(s), initial encounter; Y93.9 Activity, unspecified; Y92.9 Unspecified place or not applicable; Y99.8 Other external cause status
CPT/HCPCS: 12041; 96372; 99283; 99284; J1885